=== PATIENT | female | born 1970 | race Caucasian/White ===

== ENCOUNTER → 2020-10-12 14:13 | Outpatient (REF) | payer OTHER, BC, SELFPAY | LOC: ANHLAB 14:13 | PROVIDERS: Family Provider Family Medicine; PCP Family Medicine; Visit Provider Nurse Practitioner | DX: D22.72 Melanocytic nevi of left lower limb, including hip (principal) | CPT/HCPCS: 88305 ==

== ENCOUNTER 2021-02-11 15:58 | Emergency (ER) | payer OTHER, BC, SELFPAY ==
--- NOTE | ~2021-02-11 | XR_ITS ---
XR finger 2nd LT min 2V 02/11/2021 16:23 Indication: Laceration to left second finger Procedure: 3 views left second finger Comparison: No prior studies for comparison. Findings: There is a soft tissue laceration with soft tissue swelling. There are punctate radiodensit ies in the soft tissues. Tiny foreign bodies not excluded. No discrete fracture is identified. Impression: 1: Soft tissue laceration with swelling and possible punctate foreign bodies overlying the proximal p halanx. 2: No fracture. Reviewed, dictated and finalized at location A. Impression: 1: Soft tissue laceration with swelling and possible punctate foreign bodies ov erlying the proximal phalanx. 2: No fracture.
[2021-02-11 16:00] VITALS: BP 119/72; PULSE 91; RESP 18; TEMP 36.3; O2SAT 99
[2021-02-11] MEDS: ACETAMINOPHEN 500 MG TABLET 1000 MG PO (17:15)
--- NOTE | 2021-02-11 17:37 | ED.UPPEXIN ---
HPI - Extremity Injury (Upper) General Chief Complaint: Extremity Injury, Upper Stated Complaint: horse injury- l index finger injury Time Seen by Provider: 02/11/21 17:22 Source: patient and family Limitations: no limitations History of Present Illness HPI narrative: Patient is 30 years old white female got kicked to her left index by a horse causing quite a bit of multiple lacerations prior to arrival to the emergency room. Patient denies other injuries. Related Data Home Medications Medication Instructions Recorded Confirmed aspirin 325 mg tablet 325 mg PO DAILY 07/27/19 cyanocobalamin (vitamin B-12) 5,000 mcg PO DAILY 07/27/19 5,000 mcg capsule multivitamin 1 cap PO DAILY 07/27/19 Allergies Allergy/AdvReac Type Severity Reaction Status Date / Time naproxen Allergy Unknown indigestion Verified 10/26/20 15:41 Review of Systems Review of Systems: Narrative: CONSTITUTIONAL: Denies fever, chills, or sweats. EYES: Denies visual changes, redness, or discharge. ENT: Denies rhinorrhea, congestion, sore throat, or otalgia. CARDIOVASCULAR: Denies chest pain, palpitations, or edema. RESPIRATORY: Denies cough or dyspnea. GASTROINTESTINAL: Denies abdominal pain, nausea, vomiting, or diarrhea. GENITOURINARY: Denies dysuria or hematuria. SKIN: Denies rash or itching. MUSCULOSKELETAL: Denies back pain, joint pain, or myalgia. NEUROLOGIC: Denies headache, numbness, or weakness. PSYCHIATRIC: Denies anxiety or depression. PMFSH Surgical History Surgical History History of section Family History Family History Father Family history of hypercholesterolemia Hypertension Mother Hypertension Cerebrovascular accident Grandparent Family history of malignant neoplasm of breast Family history of heart disease in male family member before age 55 Social History Social History Smoking status: Never smoker Alcohol intake: never Gender identity (if verbalized by the patient): Female Exam Narrative: Exam Narrative: General appearance: Well-developed, well-nourished Skin: Left index finger showed multiple lacerations all over the finger looks like got shredded anteriorly and posteriorly from the proximal phalanx all the way to the distal phalanx. Severe limited range of motion because of pain. Unable to evaluate the lacerations certainly because of the pain and inability to numb the finger could the laceration all the way to the distal index which make it difficult to get ring anesthesia Vascular: Normal peripheral pulses, normal capillary refill. Musculoskeletal: Severe limited range of motion of left index Neurologic: Alert and oriented ?3, HOME BUILDER is normal as tested, no gross motor deficit Course Consultations Consultation #1: Dr. Howe, Send patient to [facility] Date: 02/11/21 Time: 17:47 Consultation #2: DR VIGIL, the trauma surgeon on-call at [facility] requested to transfer patient to the ED as soon as possible, light and sirens even flying the patient as soon as possible if the ambulance is not available. Patient needS to come by ambulance not by private car Date: 02/11/21 Time: 19:02 Consultation #3: DR VILLA Date: 02/11/21 Time: 19:04 Vital Signs Vital signs: Vital Signs Temperature 36.3 C L 02/11/21 16:00 Pulse Rate 91 02/11/21 16:00 Respiratory Rate 18 02/11/21 16:00 Blood Pressure 119/72 02/11/21 16:00 Pulse Oximetry 99 02/11/21 16:00 Temperature 36.3 C L 02/11/21 16:00 Pulse Rate 91 02/11/21 16:00 Respiratory
[2021-02-11] MEDS: TETANUS,DIPHTHERIA,AC PERTUSSIS ADULT (0.5 ML) BOOSTRIX IM (17:44)
[2021-02-11] MEDS: MORPHINE SULFATE (*CRX) 4 MG/ML INJ IV PUSH (17:44)
[2021-02-11] MEDS: ONDANSETRON INJ 4 MG/2 ML VIAL IV PUSH ×2 (17:44→19:25)
[2021-02-11 18:30] VITALS: BP 118/84; PULSE 80; RESP 14; O2SAT 98
--- NOTE | 2021-02-11 18:45 | PC.NURSE ---
ERP requested urgent ALS ambulance for transfer due to mechanism of injury. Pt. PMS intact to their left middle finger. Pt. states the finger is very painful.
--- NOTE | 2021-02-11 19:21 | PC.NURSE ---
called sanjuana zee and [facility] [address], per dr chahal.
[2021-02-11 19:25] VITALS: BP 106/69; PULSE 75; RESP 14; O2SAT 98
== END 2021-02-11 19:39 | disposition short-term general hospital (02) ==
PROVIDERS: Emergency Provider Emergency Medicine; PCP Family Medicine
DX: S61.211A Laceration without foreign body of left index finger without damage to nail, initial encounter (principal); Z23 Encounter for immunization; Z79.82 Long term (current) use of aspirin; W55.12XA Struck by horse, initial encounter
CPT/HCPCS: 73140; 90471; 90715; 96374; 96375; 96376; 99285; A9270; J2270; J2405

== ENCOUNTER 2022-11-20 08:22 | Emergency (ER) | payer OTHER, BC, SELFPAY ==
[2022-11-20 08:30] VITALS: BP 110/71; PULSE 103; RESP 16; TEMP 36.2; O2SAT 97
--- NOTE | 2022-11-20 08:32 | ED.GENADULT ---
HPI - General Adult General Chief complaint: Ear Stated complaint: COUGH/L EARACHE Time Seen by Provider: 11/20/22 08:31 Source: patient Mode of arrival: ambulatory Limitations: no limitations History of Present Illness HPI narrative: Patient is a 52-year-old male who presents with left ear pain since Friday and dry cough. Denies any fever, headache, congestion and sore throat. States she did at home test negative for COVID on Friday. Related Data Home Medications Medication Instructions Recorded Confirmed aspirin 325 mg tablet (Briseida 325 mg PO DAILY 07/27/19 Aspirin) cyanocobalamin (vitamin B-12) 5,000 mcg PO DAILY 07/27/19 5,000 mcg capsule multivitamin 1 cap PO DAILY 07/27/19 Allergies Allergy/AdvReac Type Severity Reaction Status Date / Time naproxen Allergy Unknown indigestion Verified 11/20/22 08:34 Review of Systems Review of Systems: All systems reviewed & are unremarkable except as noted in HPI and below Constitutional: Constitutional: Denies body ache(s), Denies fever(s), Denies headache(s), Denies malaise and Denies weakness Eyes: Eyes: Reports no additional eye complaints and Denies loss of vision ENT: Reports system reviewed and no additional complaints, except as documented, Reports otalgia, Denies headache(s), Denies nasal congestion, Denies sinus pain and Denies sore throat Cardiovascular: Cardiovascular: Reports no additional cardiovascular complaints, Denies chest pain, Denies irregular heart rhythm and Denies dyspnea Respiratory: Respiratory: Reports no additional respiratory complaints, Reports cough and Denies dyspnea Gastrointestinal: Gastrointestinal: Reports no additional gastrointestinal complaints, Denies abdominal pain, Denies melena, Denies hematochezia, Denies diarrhea, Denies nausea and Denies vomiting Musculoskeletal: Musculoskeletal: Reports no additional musculoskeletal complaints, Denies back pain, Denies myalgias and Denies arthralgias Integumentary/Breasts: Skin/Breast: Reports system reviewed and no additional complaints, except as docu, Denies pruritus and Denies rash Neurologic: Reports system reviewed and no additional complaints, except as documented, Denies headache(s), Denies loss of vision and Denies weakness Psychiatric: Psychiatric: Reports no additional psychiatric complaints PMFSH Surgical History Surgical History History of section Family History Family History (System 12/28/21 @ 16:26 by Bharti Kilgore) Father Family history of hypercholesterolemia Hypertension Mother Hypertension Cerebrovascular accident Grandparent Family history of malignant neoplasm of breast Family history of heart disease in male family member before age 55 Social History Social History (System 12/28/21 @ 16:26 by Bharti Kilgore) Smoking status: Never smoker Alcohol intake: never Gender identity (if verbalized by the patient): Female Comments At time of signature, agree with nursing past medical, surgical, social and family history. There is no relevant family history pertinent to the presenting complaint. Exam Const: General: cooperative, healthy appearing, comfortable, no acute distress and well nourished Nutritional Appearance: well nourished Orientation/consciousness: patient oriented x3 Limitations: no limitations HENMT: Head: normal to inspection, normocephalic and atraumatic Ears: hearing grossly normal bilaterally, external ears normal and TM's normal bilaterally Face/Nose/Sinus: Normal external nose present, Normal nares present, Normal nasal mucous membranes and turbinates present, normal facial exam, sinuses nontender and face symmetric Face and sinus: normal facial exam, sinuses nontender and face symmetric Mouth: Yes Normal oral and palatal mucosa present, Yes lip normal and Yes moist mucous membranes Teeth and gingiva: dentition normal Throat: posterior oropharynx normal, to
== END 2022-11-20 08:45 | disposition home or self-care (01) ==
PROVIDERS: Emergency Provider Nurse Practitioner Family
DX: J06.9 Acute upper respiratory infection, unspecified (principal)
CPT/HCPCS: 99211; G0463

== ENCOUNTER 2025-06-27 00:35 | Day surgery (SDC) | payer OTHER, BC, SELFPAY ==
--- OUTSIDE RECORDS SUMMARY | 2000-09-05 06:15 | XMS_ITS | Continuity of Care Document ---
Author Organization [facility] Address [address] [place] [address] Phone Care Team Providers Care Glass Wool Blanket Machine Feeder Name Role Phone Mi OD, Radames Unavailable Unavailable Advance Directives Directive Yes / No Effective Date File Name No Information Encounters Encounter Description Practice Location Reason(s) For Visit Diagnoses Date Provider Providers Copied on Encounter [facility], [address], [place], [place], [id number], [place] tel:[phone] [facility] No Information Dec-2 2-200 0 Mi OD Radames. [address] , [address], [place], [address], [place]. tel:[phone] Family History Family Member Type Diagnosis Age At Onset No Information Payers Payer name Insurance type Covered constitution party ID Authoriza tion(s) No Information Social History Type Description Quantity Date Captured Comments Sex Female Smoking Status No Information Chief Complaint And Reason For Visit No Information Reason For Referral Reason For Referral No Information History Of Present Illness Encounter Date Complaint History Of Prese nt Illness No Information Functional Status Date Functional Assessmen t No Information Instructions Date Instruction Additional Infor mation No Information Assessments Type Assessment Date No Information Patient Care Teams Name Effective Dates (start - stop) Status Members No Information
[2025-06-20 08:34] VITALS: BMI 28.2
--- OUTSIDE RECORDS SUMMARY | 2025-06-27 00:39 | XMS_ITS | Clinical Summary ---
Author Organization [facility] [employer] Address [address] [place] [address] Care Team Providers Care Window And Door Installer Name Role Phone Sonya Choudhury MD Primary Care Provider [phone] Source Comments [facility] [employer],non-owned Affiliates and Associated Physician Practices is amultiple site organization consisting of ambulatory clinics and hospital sitesin [place], [place], [place] and [place]. This disclosure is being madepursuant to the Care Everywhere program and may not contain all information available regarding this patient. Last updated 18.[facility] [employer] Allergies Active Allergy Reactions Criticality Noted Date Comments Naproxen Other Low 09/04/2017 Gi distress Medications * Be aware that medications may not be up to date on this document. Alwaysverify current medications with the patient. aspirin (ASPIRIN) 325 MG tablet Take 325 mg by mouth DAILY. 12/11/2017 Active IBUPROFEN PO Active Active Problems Problem Noted Date Diagnosed Date Laceration of index finger o f left hand without complication 02/23/2021 Closed fracture of rib of right side 09/05/2017 Traumatic pneumothorax 09/05/2017 Multiple closed fractures of ribs of right side 09/05/2017 Overview (12/15/2017): Right 1-9th, Closed fracture of right clavicle 09/05/2017 Other abnormalities of breathing 09/05/2017 Closed fracture of thoracic vertebra 09/05/2017 Overview (12/15/2017): Right T7-T8 TP Animal-rider injured by fall from or being thrown from horse in noncollision accident, initial encounter 09/05/2017 Unspecified injury of other specified intrathoracic organs, initial encounter 09/05/2017 Social History Tobacco Use Types Packs/Day Years Used Date Smoking Tobacco: Never Smokeless Tobacco: Never Alcohol Use Standard Drinks/Week Comments Yes 0 (1 standard drink = 0.6 oz pur e alcohol) Comments No Sex and Gender Information Value Date Recorded Sex Assigned at Not on file Legal Sex Female 5:58 PM EDGE INKER UPPERS Gender Identity Not on file Sexual Orientation Not on file Last Filed Vital Signs Vital Sign Reading Time Taken Comments Blood Pressure 124/78 05/30/2021 2:06 PM CDT Pulse 73 05/30/2021 2:06 PM CDT Temperature 36.8 C (98.2 F) 05/30/2021 2:06 PM CDT Respiratory Rate 18 04/18/2021 10:04 AM CDT Oxygen Saturation 96% 05/30/2021 2:06 PM CDT Inhaled Oxygen Concentration - - Weight 85.3 kg (188 lb) 05/30/2021 2:06 PM CDT Height 170.2 cm (5' 7) 05/30/2021 2:06 PM CDT Body Mass Index 29.44 05/30/2021 2:06 PM CDT Plan of Treatment Health Maintenance Due Date Last Done Comments COLOGUARD (AGES 45-75) - COLON CA SCREENING 1969 COLON MONITORING 1969 COLONOSCOPY - COLON CA SCREENING 1969 CT COLONOGRAPHY - COLON CA SCREENING 1969 Colorectal Cancer Screening 1969 FIT - COLON CA SCREENING 1969 FLEX SIG - COLON CA SCREENING 1969 LIPID TESTING 1969 MAMMOGRAM 1969 HIV SCREENING 1984 HEPATITIS C SCREENING 10/05/1987 DTAP/TDAP/TD VACCINES (1 - Tdap) 1988 HEPATITIS B VACCINE (1 of 3 - 19+ 3-dose series) 1988 PNEUMOCOCCAL VACCINE 50+ (1 of 1 - PCV) 2019 ZOSTER VACCINE (1 of 2) 2019 SCREENING FOR DIABETES 09/09/2020 7, 09/08/2017, 09/07/2017, Additional history exists DEPRESSION SCREENING 09/15/2024 COVID-19 VACCINE ( season) 2025 INFLUENZA VACCINE (#1) 2025 HIB VACCINE Aged Out No longer eligi ble based on patient's age to complete this topic HPV VACCINE Aged Out No longer eligi ble based on patient's age to complete this topic MENINGOCOCCAL (Group B) VACCINE SHARED DECISION-MAKING Aged Out No longer eligible based on patient's age to complete this topic MENINGOCOCCAL GROUPS A/C/Y/W VACCINE Aged Out No longer eligible based on patient's age to complete this topic Procedures Procedure Name Priority Date/Time Associated Diagnosis Comments BASIC METABOLIC PANEL (CALCIUM TOTAL) Routine 09/09/2017 6:33 AM EDGE INKER UPPERS from Last 3 Months or Most Recently Relevant to Health Maintenance Results * (ABNORMAL) BASIC METABOLIC PANEL (CALCIUM TOTAL) (09/09/2017 6:33 AM EDGE INKER UPPERS) BUN 11 7 - 26 mg/dL [facility] Creatinine 0.8 0.6 - 1.2 mg/dL [facility] Sodium 138 136 - 145 mmol/L [facility] Potassium 4.6(H) 3.5 - 4.5 mmol/L [facility] Chloride 101 98 - 107 mmol/L [facility] CO2 30(H) 22 - 29 mmol/L [facility] Glucose 93 70 - 115 mg/dL [facility] Calcium 8.9 8.4 - 10.2 mg/dL [facility] Anion Gap 12 8 - 18 [facility] BUN/Creatinine Ratio 14 7 - 23 [facility] Osmolality Calculated 285 270 - 300 mOsm/kg [facility] eGFR >60 >60 mL/min/1.7 3 m2 [facility] Blood specimen (specimen) BLOOD SPECIMEN / Unknown 09/09/2017 6:33 AM EDGE INKER UPPERS 09/09/2017 6:59 AM EDGE INKER UPPERS us Abraham Bentley DO LAB - CHEMISTRY ORDERABLES [place] [address], [facility] [phone] from Last 3 Months or Most Recently Relevant to Health Maintenance Insurance [facility] Care Teams Window And Door Installer Relationship Specialty Start Date End Date Sonya Choudhury MD [address] [place] [address] PCP - General 10/13/20
[2025-06-27 06:43] VITALS: BP 108/61; PULSE 81; RESP 18; TEMP 36.4; O2SAT 98
[2025-06-27] MEDS: LACTATED RINGERS 1,000 ML 150 ML IV CONT (06:53)
--- NOTE | 2025-06-27 06:59 | P.PNAN_ITS ---
Anes - Initial Pre Proc Eval Procedure: Operation Date: 06/27/25 08:00 Proposed Procedures p Screening Colonoscopy - Zhen Morgan MD Date/Time: 06/27/25 06:59 Surgeon: Zhen Morgan MD Pre Op Diagnosis: Screening Patient Data Age: 54 Gender: F Height: 1.7 m Weight: 83 kg Last Vital Signs Temp 36.4 C L 06/27/25 06:43 Pulse 81 06/27/25 06:43 Resp 18 06/27/25 06:43 BP 108/61 06/27/25 06:43 Pulse Ox 98 06/27/25 06:43 O2 Del Method Room Air 06/27/25 06:43 Allergies Allergy/AdvReac Type Severity Reaction Status Date / Time naproxen Allergy Unknown indigestion Verified 06/27/25 06:41 Home Medications ?Medication ?Instructions ?Recorded ?Confirmed ?Type aspirin 325 mg tablet (Briseida 325 mg PO DAILY 07/27/19 06/27/25 History Aspirin) cyanocobalamin (vitamin B-12) 5,000 mcg PO DAILY 07/2706/27/25 History 5,000 mcg capsule multivitamin 1 cap PO DAILY 07/27/1906/15 History burn evolve 2.0 BYMOUTH 04/16/24 01/19/25 Hi story cholecalciferol (vitamin D3) 50 50 mcg PO DAILY 06/27/25 History mcg (2,000 unit) capsule Patient hx anesthesia problems: none Family hx anesthesia problems: none Results Review: All pre-operative results and documents have been reviewed as part of the pre- operative evaluation. [facility] Past Medical History Medical History (Updated 01/19/25 @ 15:39 by Ирина Palmer CMA) Hypoglycemia Anemia History of pulmonary embolism (~2008) both lungs Hyperglycemia History of melanoma Surgical History Surgical History H/O arthroscopy (~1995) H/O breast biopsy (~2010) H/O gynecological procedure (~2009) ~2009 ablation History of section Family History Family History (Updated 01/19/25 @ 15:42 by Ирина Palmer CMA) Father Family history of hypercholesterolemia Hypertension Mother Hypertension Cerebrovascular accident Grandparent Family history of malignant neoplasm of breast Family history of heart disease in male family member before age 55 Grandparent Diabetes mellitus Grandparent Family history of heart disease in male family member before age 55 Social History Social History (Updated 01/19/25 @ 15:[address] [facility]) Smoking status: Never smoker Second hand tobacco smoke exposure: No Alcohol intake: current Drinks per week: 1 Alcohol use details: per month Substance use: never Substance use type: does not use Do You Feel Safe in your Home?: Yes Lack of Transportation: No Lack of Food: Never True Current Housing: I Have Housing Concerned About Future Housing: No Difficulty Paying Gas/Electric Bills: No Difficulty Paying for Meds: No Currently Unemployed: No Education: Master's Degree or Higher Difficulty w/ Childcare or Family Care: No Living arrangements: with family Occupation/Education: occupation Gender identity (if verbalized by the patient): Female Sexual Orientation (if Verbalized by the Patient): Straight or Heterosexual Spiritual care concerns: No Agree to blood products: Yes Anes - Eval Final PreProcedure Day of Procedure 06/27/25 06:59 Patient weight: overweight Heart: regular rate and rhythm Lungs: clear to auscultation Airway: Mallampati scale class II Neurological: alert and oriented Last oral intake: >/= 8 hours ASA classification: II Emergent: no Anesthetic plan: proceed Anesthesia type and monitoring: general GIVS and standard monitoring Results Review: All pre-operative results and documents have been reviewed as part of the pre- operative evaluation. Informed Consent: The patient's anesthetic plan and its attendant risks and benefits were discussed with the patient/family/POA. Questions were solicited and answers provided to the satisfaction of the patient/family/POA.
--- NOTE | 2025-06-27 07:59 | P.HP_ITS ---
H&P: HPI History of Present Illness Date/Time: 06/27/25 07:59 Chief Complaint: Screening colonoscopy Narrative: This is the patient's first colonoscopy. There are no GI symptoms and there is no family history of colorectal cancer. Review of Systems Review of Systems: All systems reviewed & are unremarkable except as noted in HPI and below PMFSH Past Medical History Medical History (Updated 06/27/25 @ 07:59 by Zhen Morgan MD) Hypoglycemia Anemia History of pulmonary embolism (~2008) both lungs Hyperglycemia History of melanoma Surgical History Surgical History H/O arthroscopy (~1995) H/O breast biopsy (~2010) H/O gynecological procedure (~2009) ~2009 ablation History of section Family History Family History (Updated 01/19/25 @ 15:42 by Ирина Pamler [facility]) Father Family history of hypercholesterolemia Hypertension Mother Hypertension Cerebrovascular accident Grandparent Family history of malignant neoplasm of breast Family history of heart disease in male family member before age 55 Grandparent Diabetes mellitus Grandparent Family history of heart disease in male family member before age 55 Social History Social History (Updated 01/19/25 @ 15:54 by Ирина Palmer [facility]) Smoking status: Never smoker Second hand tobacco smoke exposure: No Alcohol intake: current Drinks per week: 1 Alcohol use details: per month Substance use: never Substance use type: does not use Do You Feel Safe in your Home?: Yes Lack of Transportation: No Lack of Food: Never True Current Housing: I Have Housing Concerned About Future Housing: No Difficulty Paying Gas/Electric Bills: No Difficulty Paying for Meds: No Currently Unemployed: No Education: Master's Degree or Higher Difficulty w/ Childcare or Family Care: No Living arrangements: with family Occupation/Education: occupation Gender identity (if verbalized by the patient): Female Sexual Orientation (if Verbalized by the Patient): Straight or Heterosexual Spiritual care concerns: No Agree to blood products: Yes Meds Home Medications and Allergies Home Medications ?Medication ?Instructions ?Recorded ?Confirmed ?Type aspirin 325 mg tablet (Briseida 325 mg PO DAILY 07/27/19 06/27/25 History Aspirin) cyanocobalamin (vitamin B-12) 5,000 mcg PO DAILY 07/2706/27/25 History 5,000 mcg capsule multivitamin 1 cap PO DAILY 07/27/1906/15 History burn evolve 2.0 BYMOUTH 04/16/24 01/19/25 Hi story cholecalciferol (vitamin D3) 50 50 mcg PO DAILY 06/27/25 History mcg (2,000 unit) capsule Allergies Allergy/AdvReac Type Severity Reaction Status Date / Time naproxen Allergy Unknown indigestion Verified 06/27/25 06:41 Vital Signs Vital Signs - 24 hr 06/27/25 06:43 Temperature 97.5 F L Pulse Rate 81 Respiratory Rate 18 Blood Pressure 108/61 Pulse Oximetry 98 Oxygen Delivery Room Air Exam Const: General: cooperative and healthy appearing Resp: Effort & Inspection: normal respiratory effort and able to speak in complete sentences Auscultation: clear to auscultation bilaterally Cardio: Rate: regular rate Rhythm: regular rhythm GI: Inspection: normal to inspection GI Palp: No No hepatosplenomegaly present Auscultation: normal bowel sounds Rectal Exam: deferred Skin: General skin exam: normal color Psych: Appearance: grossly normal Mental Status: mental status grossly normal Assessment and Plan Assessment and plan (1) Encounter for screening colonoscopy: Code(s): Z12.11 - Encounter for screening for malignant neoplasm of colon Status: Acute Assessment and Plan: The patient is deemed a good candidate for the procedure. Consent signed. Will proceed.
[2025-06-27 08:20] VITALS: BP 102/61; PULSE 74; RESP 18; O2SAT 96
[2025-06-27 08:30] VITALS: BP 111/70; PULSE 70; RESP 18; O2SAT 98
[2025-06-27 08:35] VITALS: BP 114/69; PULSE 63; RESP 18; O2SAT 100
== END 2025-06-27 08:50 | disposition home or self-care (01) ==
PROVIDERS: PCP Family Medicine; Referring Provider Family Medicine; Visit Provider Internal Medicine Gastroenterology
PROC: 0DJD8ZZ Inspection of Lower Intestinal Tract, Via Natural or Artificial Opening Endoscopic (ICD-10-PCS; CPT 45378; principal; 2025-06-27 08:00)
DX: Z12.11 Encounter for screening for malignant neoplasm of colon (principal); D64.9 Anemia, unspecified; E16.2 Hypoglycemia, unspecified; Z79.82 Long term (current) use of aspirin; Z98.890 Other specified postprocedural states; Z86.711 Personal history of pulmonary embolism; Z85.820 Personal history of malignant melanoma of skin; Z80.3 Family history of malignant neoplasm of breast; Z82.49 Family history of ischemic heart disease and other diseases of the circulatory system
CPT/HCPCS: 45378; J2704; J7120

== ENCOUNTER 2025-08-17 15:19 | Outpatient (CLI) | payer OTHER, BC, SELFPAY ==
--- NOTE | ~2025-08-17 | DEXA_ITS ---
Bone Density Report Name: TRACI FERRIS Age: 54 Sex: Female Ethnicity: White Date of : 1970 Indication: postmenopausal; screening for osteoporosis; prior fracture; Referring Provider: RENNY, BELEN Kelsey Study: Bone densitometry was performed. Exam Date: August 17, 2025 Accession number: [id number] Bone Density: Region BMD T-score Z-score Classification AP Spine(L1-L4) 1.188 1.3 2.4 Normal Femoral Neck (Left) 0.803 -0.4 0.7 Normal Total Hip (Left) 1.024 0.7 1.4 Normal Femoral Neck (Right) 0.851 0.0 1.1 Normal Total Hip (Right) 1.083 1.2 1.9 Normal Total Hip Mean 1.054 1.0 1.7 Normal World Health Organization criteria for BMD impression classify patients as: Normal (T-score at or above -1.0), Osteopenia (T-score between -1.0 and -2.5), or Osteoporosis (T-score at or below -2.5). 10-year Fracture Risk: FRAX not reported because: All T-scores for Spine Total, Hip Total, Femoral Neck at or above -1.0 Prior hip or vertebral fracture Clinical Information Provided by Patient: Have had a previous hip or vertebral fracture Has had a low trauma fracture Has used the following medications: Vitamin D, Calcium Patient maximum height was 67.5 Menopause Age: 51 Drinks caffeinated beverages Onset of menses at age 16 Number of children 2 Impression: The patient has normal bone mass. The patient has risk factors, including: previous fracture. Discussion: INCREASED RISK OF FRACTURE DUE TO HISTORY OF FRACTURE. The patient's previous fracture puts the patient at high risk of a future fracture. In untreated patients, the risk of osteoporotic fracture increases approximately two-fold for each 1.0 SD decrease in T-score. Low bone density is not the only risk factor for fracture; also consider factors such as patient's age, frailty or poor health, risk of falling, risk of injury, previous osteoporotic fracture, family history of osteoporosis, cigarette smoking, low body weight, etc. Not everyone with a low trauma fracture has osteoporosis; osteomalacia and other metabolic bone disorders should also be considered. Patients who have osteoporosis should be evaluated for specific diseases and conditions (secondary causes) that may cause or contribute to bone loss and fracture risk. National Osteoporosis Foundation (NOF) recommends pharmacologic intervention for patients with a prior hip or vertebral fracture regardless of BMD T-score. The patient should follow a healthful lifestyle (good nutrition with adequate calcium and vitamin D, and appropriate weight-bearing exercise). Follow-Up: Consider a repeat BMD and Vertebral Fracture Assessment (VFA) exam in 2 years or sooner if medically necessary, to reassess this patient's status. Reported by: TYRELL on 08/18/2025 7:31:00 AM. Reviewed, dictated and finalized at location A.
== END 2025-08-17 15:20 | disposition home or self-care (01) ==
LOC: MICIMG 15:20
PROVIDERS: PCP Student in an Organized Health Care Education/Training Program; Visit Provider Family Medicine
DX: Z78.0 Asymptomatic menopausal state (principal)
CPT/HCPCS: 77080